=== PATIENT | male | born 1990 | race Caucasian/White ===

== ENCOUNTER 2016-12-08 12:04 | Emergency (ER) | payer SELFPAY ==
[~2016-12-08] VITALS: Ht 172.7 cm; Wt 82.0 kg
[~2016-12-08 12:04] MED LIST: MOBI15TA PO; PRED20 PO
[2016-12-08 12:07] VITALS: BP 104/63; PULSE 62; RESP 18; TEMP 97.5; O2SAT 97
[2016-12-08] MEDS ORDERED: MOBI15TA PO (12:40)
[2016-12-08] MEDS ORDERED: PRED20 PO (12:40)
[2016-12-08] MEDS ORDERED: CYCL1TAB29 PO (12:40)
--- NOTE | 2016-12-08 12:40 | PD ---
HPI Chief Complaint: Musculoskeletal Complaint Time Seen by Provider: 12:15 Travel History International Travel<30 days: No Contact w/Intl Traveler<30days: No Traveled to known affect area: No History of Present Illness HPI Patient is a 26-year-old male who presents to the emergency department for evaluation of right elbow pain. Patient states the pain has been ongoing for approximately 3 weeks. He was seen and evaluated in the emergency department previously for the same complaint. He states that he was diagnosed with tendinitis however for the last 3 days he's had increased pain. He denies any fever or chills, IV drug use, redness. Patient reports taking Aleve for the pain. He states his pain is 7/10 and describes as aching and sore. PFSH Past Medical History Anxiety: Yes (STATES USED TO HAVE ANXIETY ATTACKS) Diminished Hearing: No Immunizations Current: Yes Social History Alcohol Use: Yes (OCC) Tobacco Use: Yes (1 pk) Substance Use: Yes (COCAINE, MARIJUANA) Allergies-Medications (Allergen,Severity, Reaction): Coded Allergies: No Known Allergies (Verified , 12/08/16) Reported Meds & Prescriptions Reported Meds & Active Scripts Active Mobic (Meloxicam) 15 Mg Tab 15 Mg PO DAILY Prednisone 20 Mg Tab 20 Mg PO DAILY Review of Systems Except as stated in HPI: all other systems reviewed are Neg Musculoskeletal: Positive: Myalgias, Arthralgias, Pain Physical Exam Narrative GENERAL: Well-nourished, well-developed patient. SKIN: Warm and dry. HEAD: Normocephalic. EYES: No scleral icterus. No injection or drainage. NECK: Supple, trachea midline. No JVD or lymphadenopathy. CARDIOVASCULAR: Regular rate and rhythm without murmurs, gallops, or rubs. RESPIRATORY: Breath sounds equal bilaterally. No accessory muscle use. GASTROINTESTINAL: Abdomen soft, non-tender, nondistended. MUSCULOSKELETAL: No cyanosis, or edema. Full range of motion in right elbow, 5/ 5 muscle strength in upper extremities. No erythema, induration or fluctuance noted on exam. Patient is neurovascularly intact.. BACK: Nontender without obvious deformity. No CVA tenderness. Data Data Last Documented VS Vital Signs Date Time Temp Pulse Resp B/P Pulse Ox O2 Delivery O2 Flow Rate FiO2 12/08/16 12:07 97.5 62 18 104/63 97 MDM Medical Decision Making Medical Screen Exam Complete: Yes Emergency Medical Condition: Yes Interpretation(s) Vital Signs Date Time Temp Pulse Resp B/P Pulse Ox O2 Delivery O2 Flow Rate FiO2 12/08/16 12:07 97.5 62 18 104/63 97 Differential Diagnosis Tendinitis versus arthritis versus cellulitis versus other Narrative Course Patient is a 26-year-old male who presents emergency department for reevaluation of right elbow pain. Patient was seen in the emergency department twice for the same complaint. Patient is neurovascularly intact. He was diagnosed with tendinitis, prescribed meloxicam which he has not been taking. X -ray of the right elbow was negative for soft tissue swelling or acute abnormality. Patient was prescribed meloxicam, prednisone on his last visit which he did not fill. Patient will be represcribed these medications, he was encouraged to fill them and take them as directed additionally patient will be provided with a prescription for a muscle relaxer. He is encouraged to adhere to treatment plan to assess whether or not he responds appropriately. He was further encouraged to follow-up with her primary doctor or orthopedic surgeon for ongoing evaluation and management. He was advised to return to emergency department immediately should he experience any new or worsening symptoms or signs of infection. Patient verbalized understanding of these instructions. Patient is stable for discharge. Diagnosis Primary Impression: Right elbow tendinitis Referrals: [facility] Primary Care Physician Patient Instructions: General Instructions, Tendinitis (ED) Additional Instructions: Take medications as prescribed Continue range of motion exercises Apply warm moist heat to affected area Follow-up with your primary doctor and/or orthopedic surgeon for further evaluation and management Return to emergency department for any new or worsening symptoms Med/Other Pt SpecificInfo: Prescription(s) given Scripts Cyclobenzaprine (Flexeril)10 Mg Tab10 Mg PO TID PRN (MUSCLE SPASM) 10 Days Ref 0 Prov:Shania Morrison 12/08/16 Meloxicam (Mobic)15 Mg Tab15 Mg PO DAILY #30 TAB Prov:Shania Morrison 12/08/16 Prednisone 20 Mg Tab20 Mg PO DAILY #10 TAB Prov:Shania Morrison 12/08/16 Disposition: 01 DISCHARGE HOME Condition: Stable Shania Morrison Dec 08, 2016 12:40
== END 2016-12-08 12:49 | disposition home or self-care (01) ==
LOC: PHEFT 12:04
DX: M77.9 Enthesopathy, unspecified (principal); F17.210 Nicotine dependence, cigarettes, uncomplicated
CPT/HCPCS: 99283

== ENCOUNTER 2016-12-14 11:56 | Emergency (ER) | payer SELFPAY ==
[~2016-12-14] VITALS: Ht 172.7 cm; Wt 86.3 kg
[~2016-12-14 11:56] MED LIST changes: +CYCL1TAB29 PO
[2016-12-14 12:08] VITALS: BP 111/68; PULSE 64; RESP 16; TEMP 98.4; O2SAT 98
--- NOTE | 2016-12-14 12:26 | PD ---
HPI Chief Complaint: Musculoskeletal Complaint Time Seen by Provider: 12:17 Travel History International Travel<30 days: No Contact w/Intl Traveler<30days: No Traveled to known affect area: No History of Present Illness HPI The patient is a 26-year-old male who presents emergency department for right elbow pain. Patient complains of pain located over the lateral aspect the right elbow that is worse with certain types of movement. The patient has been seen twice in the emergency department and diagnosed with lateral epicondylitis. The patient was placed on prednisone and his symptoms significantly improved. However, the patient stopped the dose of prednisone after the course was complete and his pain returned. The pain is located over the lateral aspect right elbow, worse with turning his forearm and certain direction as well as palpation of the lateral and extensor surface of the right forearm. He denies any acute trauma to the right elbow. He is right-hand dominant. He is also taking Modicon Flexeril with minimal relief of his symptoms. The patient states he is currently in sobriety, requests no narcotics. PFSH Past Medical History Anxiety: Yes (STATES USED TO HAVE ANXIETY ATTACKS) Diminished Hearing: No Immunizations Current: Yes Social History Alcohol Use: Yes (OCC) Tobacco Use: Yes (1 pk) Substance Use: Yes (COCAINE, MARIJUANA) Allergies-Medications (Allergen,Severity, Reaction): Coded Allergies: No Known Allergies (Verified , 12/14/16) Reported Meds & Prescriptions Reported Meds & Active Scripts Active Flexeril (Cyclobenzaprine HCl) 10 Mg Tab 10 Mg PO TID PRN 10 Days Mobic (Meloxicam) 15 Mg Tab 15 Mg PO DAILY Review of Systems General / Constitutional: No: Fever Musculoskeletal: Positive: Pain Skin: No Rash Neurologic: No: Paresthesia, Sensory Disturbance Physical Exam Narrative GENERAL: Awake, alert, pleasant 26-year-old male who appears his stated age and is in no acute respiratory distress. SKIN: Warm and dry. HEAD: Atraumatic. Normocephalic. EYES: No injection or drainage. NECK: Trachea midline. No JVD. MUSCULOSKELETAL: No obvious deformities. Inspection of the right elbow reveals no obvious edema, erythema, and no calor on palpation. Tenderness over the lateral epicondyle of the right forearm, symptoms are exacerbated by active supination/pronation the right form as well as extension of the right hand. Positive right radial pulse. No tenderness of the medial epicondyle. Patient is able fully flex and extend the right elbow. NEUROLOGICAL: Awake and alert. No obvious cranial nerve deficits. Motor grossly within normal limits. Normal speech. Sensation is intact over the radial, median, and ulnar distribution of the right upper extremity. PSYCHIATRIC: Appropriate mood and affect; insight and judgment normal. Data Data Last Documented VS Vital Signs Date Time Temp Pulse Resp B/P Pulse Ox O2 Delivery O2 Flow Rate FiO2 12/14/16 12:08 98.4 64 16 111/68 98 Orders Ketorolac Inj (Toradol Inj) (12/14/16 12:30) [facility] Medical Decision Making Medical Screen Exam Complete: Yes Emergency Medical Condition: Yes Medical Record Reviewed: Yes Differential Diagnosis Differential diagnosis includes lateral epicondylitis, medial epicondylitis, tendinitis, neuropathy, ulnar tunnel syndrome, occult fracture, overuse syndrome. Narrative Course The patient's physical examination is consistent with lateral epicondylitis. The patient recently finished oral steroids, is advised to continue the Motrin Flexeril. He is advised to use a bandage over the proximal right forearm to take pressure off the insertion point of the lateral upper condyle. She is also advised to follow-up with orthopedics, he may benefit from outpatient follow-up and possible steroid injection. Diagnosis Primary Impression: Right elbow tendinitis Patient Instructions: General Instructions Additional Instructions: Follow-up with orthopedics. [id number] forearm band as directed. Rest, ice, compression, elevation, and limited activity with a right upper extremity. Disposition: 01 DISCHARGE HOME Condition: Stable Venkatesh Kaur MD Dec 14, 2016 12:26
[2016-12-14] MEDS ORDERED: KETOROLAC TROMETHAMINE 60 MG/2 ML (IM) VIAL IM ONE (12:30)
== END 2016-12-14 12:47 | disposition home or self-care (01) ==
LOC: PHEFT 11:56
DX: M77.11 Lateral epicondylitis, right elbow (principal); F17.210 Nicotine dependence, cigarettes, uncomplicated; F12.10 Cannabis abuse, uncomplicated; F14.10 Cocaine abuse, uncomplicated; F41.9 Anxiety disorder, unspecified
CPT/HCPCS: 96372; 99283; J1885

== ENCOUNTER 2017-04-12 12:06 | Emergency (ER) | payer SELFPAY ==
[~2017-04-12] VITALS: Ht 175.3 cm; Wt 80.7 kg
[~2017-04-12 12:06] MED LIST changes: -PRED20 PO
[2017-04-12 12:14] VITALS: BP 106/55; PULSE 75; RESP 15; TEMP 98.1; O2SAT 96
--- NOTE | 2017-04-12 12:40 | PD ---
HPI Chief Complaint: Skin Problem Time Seen by Provider: 12:40 Travel History International Travel<30 days: No Contact w/Intl Traveler<30days: No Traveled to known affect area: No History of Present Illness HPI 27-year-old male presents to emergency Department with enlarging painful cyst behind the right ureter at the base of the posterior pinna. Patient denies any specific injury. Patient states he had a small cyst there for many years but over the past week has become more erythematous and swollen. His pain is 9 out of 10 with pressure to the area. He has had no drainage from the area. He denies fever, chills, or other symptoms. He has no known drug allergies. PFSH Past Medical History Anxiety: Yes (STATES USED TO HAVE ANXIETY ATTACKS) Diminished Hearing: No Immunizations Current: Yes Influenza Vaccination: No ?: Not Social History Alcohol Use: Yes (OCC) Tobacco Use: Yes (1 PPD) Substance Use: Yes (HX COCAINE, MARIJUANA; DENIES CURRENTLY) Allergies-Medications (Allergen,Severity, Reaction): Coded Allergies: No Known Allergies (Verified , 04/12/17) Reported Meds & Prescriptions Reported Meds & Active Scripts Active No Active Prescriptions or Reported Medications Review of Systems Except as stated in HPI: all other systems reviewed are Neg General / Constitutional: No: Fever Eyes: No: Visual changes HENT: No: Headaches Cardiovascular: No: Chest Pain or Discomfort Respiratory: No: Shortness of Breath Gastrointestinal: No: Abdominal Pain Genitourinary: No: Dysuria Musculoskeletal: No: Pain Skin: No Rash Neurologic: No: Weakness Psychiatric: No: Depression Endocrine: No: Polydipsia Hematologic/Lymphatic: No: Easy Bruising Physical Exam Narrative GENERAL: Patient appears in mild distress. SKIN: Warm and dry. Normal color. Normal turgor. Patient has a rounded firm centimeter sized tender abscess to the right posterior pinna without obvious pointing or drainage. HEAD: Atraumatic. Normocephalic. EYES: Pupils equal and round. No scleral icterus. No injection or drainage. ENT: No nasal bleeding or discharge. Mucous membranes pink and moist. Pharynx is clear. NECK: Trachea midline. Supple and nontender. MUSCULOSKELETAL: Extremities without clubbing, cyanosis, or edema. No obvious deformities. NEUROLOGICAL: Awake and alert. No obvious cranial nerve deficits. Motor grossly within normal limits. Five out of 5 muscle strength in the arms and legs. Normal speech. PSYCHIATRIC: Appropriate mood and affect; insight and judgment normal. Data Data Last Documented VS Vital Signs Date Time Temp Pulse Resp B/P Pulse Ox O2 Delivery O2 Flow Rate FiO2 04/12/17 12:14 98.1 75 15 106/55 96 Orders Lidocai-Epi 1%-1:100,000 Inj (Xylocaine- (04/12/17 12:45) MDM Medical Decision Making Medical Screen Exam Complete: Yes Emergency Medical Condition: Yes Differential Diagnosis Right ear abscess. Right ear cellulitis. Sebaceous cyst. Narrative Course Patient is medically stable at time of exam. Patient is discussed and examined with Dr. Fam. I&D of abscess is performed. Pressure dressing is placed with instructions to leave on for 24 hours. Patient can ice the area frequently as needed. Patient also placed on Bactrim DS twice a day 5 days. Patient take ibuprofen or Tylenol as needed for pain. Patient follow-up as needed either here or with his primary care physician. Procedures Procedure Narrative After the risks and benefits were discussed the following procedure was performed: INCISION AND DRAINAGE OF ABSCESS: The area was prepped and was sterilely draped. A subcutaneous wheal of 1 % Xylocaine with epinephrine with a total number 1.5 mL was used to anesthetize the area. The area was properly anesthetized. A number 11 scalpel was used to make a 0.5-cm incision across the area of the abscess. The abscess was drained an irrigated with normal saline. Sterile pressure dressing applied. Patient advised to keep dressing on for at least 24 hours. He can use ice, Tylenol, and ibuprofen as needed. Diagnosis Primary Impression: Sebaceous cyst of ear Patient Instructions: Abscess Incision and Drainage (ED), Cyst (ED), General Instructions Additional Instructions: Patient is medically stable at time of exam. Patient is discussed and examined with Dr. Fam. I&D of abscess is performed. Pressure dressing is placed with instructions to leave on for 24 hours. Patient can ice the area frequently as needed. Patient also placed on Bactrim DS twice a day 5 days. Patient take ibuprofen or Tylenol as needed for pain. Patient follow-up as needed either here or with his primary care physician. Med/Other Pt SpecificInfo: Prescription(s) given Scripts Ibuprofen 600 Mg [id number] Mg PO Q6H PRN (Pain/Inflammation) #40 TAB Prov:Dany Fam MD 04/12/17 Sulfamethoxazole-Trimethoprim (Bactrim DS)800-160 Mg Tab1 Tab PO BID #14 TAB Prov:Dany Fam MD 04/12/17 Disposition: 01 DISCHARGE HOME Condition: Stable Jv Garner April 12, 2017 12:40
[2017-04-12] MEDS ORDERED: LIDOCAINE 1%/EPINEPHrine 1:100,000 SOLN 20 ML VIAL INFIL ONE (12:45)
[2017-04-12] MEDS ORDERED: IBUP-232 PO (13:10)
[2017-04-12] MEDS ORDERED: BACT800T5 PO (13:10)
== END 2017-04-12 13:33 | disposition home or self-care (01) ==
LOC: PHEFT 12:06
DX: L72.3 Sebaceous cyst (principal); F41.9 Anxiety disorder, unspecified; F17.200 Nicotine dependence, unspecified, uncomplicated
CPT/HCPCS: 10060

== ENCOUNTER 2017-11-04 19:38 | Emergency (ER) | payer SELFPAY ==
[~2017-11-04 19:38] MED LIST changes: +BACT800T5 PO; -CYCL1TAB29 PO; +IBUP-232 PO; -MOBI15TA PO
[2017-11-04 19:40] VITALS: BP 120/55; PULSE 80; TEMP 98.8; O2SAT 96
[2017-11-04 20:02] VITALS: RESP 22
[2017-11-04] MEDS ORDERED: BACT800T5 PO (20:49)
--- NOTE | 2017-11-04 20:49 | PD ---
HPI Chief Complaint: Skin Problem Time Seen by Provider: 20:00 Travel History International Travel<30 days: No Contact w/Intl Traveler<30days: No Traveled to known affect area: No History of Present Illness HPI 27-year-old male patient presents emergency department for evaluation of an abscess to the posterior aspect of his right earlobe. Patient denies any fever , chills, malaise associated. Patient states he noted the abscess for a couple days. Patient states that this is recurring. He had to get his abscess drained at our facility prior. On the posterior aspect of the lower earlobe a large fluctuant erythematous swelling was noted. It was approximately 3 cm in diameter and 3 cm in height away from the earlobe. Patient is no other physiological complaints at this time. PFSH Past Medical History Anxiety: Yes (STATES USED TO HAVE ANXIETY ATTACKS) Diminished Hearing: No Immunizations Current: Yes Influenza Vaccination: No Social History Alcohol Use: Yes (OCC) Tobacco Use: Yes (1 PPD) Substance Use: Yes (HX COCAINE, MARIJUANA; DENIES CURRENTLY) Allergies-Medications (Allergen,Severity, Reaction): Coded Allergies: No Known Allergies (Verified Adverse Reaction, Unknown, 11/04/17) Reported Meds & Prescriptions Reported Meds & Active Scripts Active Bactrim DS (Sulfamethoxazole-Trimethoprim) 800-160 Mg Tab 1 Tab PO BID 7 Days Review of Systems Except as stated in HPI: all other systems reviewed are Neg Physical Exam Narrative GENERAL: Well-nourished, well-developed 27-year-old male patient in no acute distress. Nontoxic appearing. SKIN: 3 cm in diameter and 3 cm in height fluctuation on the posterior aspect of the right earlobe that is mildly erythematous and tender to the touch. HEAD: Normocephalic. Atraumatic. EYES: No scleral icterus. No injection or drainage. NECK: Supple, trachea midline. No JVD or lymphadenopathy. CARDIOVASCULAR: Regular rate and rhythm without murmurs, gallops, or rubs. RESPIRATORY: Breath sounds equal bilaterally. No accessory muscle use. GASTROINTESTINAL: Abdomen soft, non-tender, nondistended. MUSCULOSKELETAL: No cyanosis, or edema. BACK: Nontender without obvious deformity. No CVA tenderness. Data Data Last Documented VS Vital Signs Date Time Temp Pulse Resp B/P (MAP) Pulse Ox O2 Delivery O2 Flow Rate FiO2 12/16/17 20:02 22 11/04/17 19:40 98.8 80 120/55 (76) 96 Orders Orders Ed Discharge Order (11/04/17 20:54) Tetanus/Diphtheria Tox Adult (Tetanus/Di (11/04/17 21:00) Wound Culture And Gram Stain (11/04/17 21:02) MDM Medical Decision Making Medical Screen Exam Complete: Yes Emergency Medical Condition: Yes Differential Diagnosis Differential diagnoses include but not limited to abscess, cyst, cellulitis Narrative Course I&D was performed to the abscess in the posterior aspect of the right ear. Please see my procedural narrative. Large amount of purulent drainage was noted from the abscess. Patient reported relief of pressure. Due to the strange presentation of this abscess there was a large amount of excess skin when the purulent fluid was drained. It was high risk to reaccumulate and not appropriate to pack. There was a excess thin skin layer after the drainage. The excess skin was removed and sutures were placed to approximate the wound and facilitate healing. Antibiotics given prophylactically due to sutures being placed after an I&D. Patient told that antibiotics are free at [facility]. Patient reports that he attributes the reason the abscesses keep reforming is there is some "hard ball" in his ear lobe that needs to be removed. No foreign body or "hard ball" noted during this procedure. Patient is discharged home with instructions to keep sutures clean and dry and return in 7-10 days to get the sutures removed. Patient stable for discharge at this time. Diagnosis Primary Impression: Abscess of external ear Qualified Codes: H60.01 - Abscess of right external ear Referrals: [facility] Primary Care Physician Patient Instructions: Abscess (ED), General Instructions Additional Instructions: Please return to emergency department if your symptoms return or worsen. Watch for signs or symptoms of infection such as redness, fevers, purulent discharge, increasing pain and seek medical attention immediately if signs of infection. Follow up with your primary care provider. May take [id number] ibuprofen or Tylenol as need for pain. Keep sutures clean and dry. Get sutures removed in 7-10 days. Med/Other Pt SpecificInfo: Prescription(s) given Scripts Sulfamethoxazole-Trimethoprim (Bactrim DS) 800-160 Mg Tab 1 TAB PO BID for Infection for 7 Days, #14 TAB 0 Refills Prov: Whitney Acosta 11/04/17 Disposition: 01 DISCHARGE HOME Condition: Stable Whitney Acosta Nov 04, 2017 20:49
[2017-11-04] MEDS ORDERED: TETANUS/DIPHTHERIA TOXOID ADULT 0.5 ML VIAL IM ONE (21:00)
== END 2017-11-04 21:12 | disposition home or self-care (01) ==
LOC: PHEFT 19:38
DX: H60.01 Abscess of right external ear (principal); Z72.0 Tobacco use; Z23 Encounter for immunization
CPT/HCPCS: 69005; 87070; 87205; 90471; 90714

== ENCOUNTER 2017-11-09 18:15 | Emergency (ER) | payer SELFPAY ==
[~2017-11-09 18:15] MED LIST changes: -IBUP-232 PO
[2017-11-09 18:20] VITALS: BP 123/59; PULSE 62; RESP 20; TEMP 98.3
--- NOTE | 2017-11-09 18:46 | PD ---
HPI Chief Complaint: Skin Problem Time Seen by Provider: 18:33 Travel History International Travel<30 days: No Contact w/Intl Traveler<30days: No Traveled to known affect area: No History of Present Illness HPI 27-year-old male with PMH of sebaceous cyst removal from the right earlobe on presents to the ED for suture removal. He denies fever, chills, drainage from the wound, redness of the wound, tenderness of the wound. He did not take antibiotics at first prescribed at the time of the procedure. PFSH Past Medical History Anxiety: Yes (STATES USED TO HAVE ANXIETY ATTACKS) Diminished Hearing: No Immunizations Current: Yes Social History Alcohol Use: No (OCC) Tobacco Use: Yes (1 PPD) Substance Use: Yes (HX COCAINE, MARIJUANA; STATES CURRENTLY 16MO SOBER.) Allergies-Medications (Allergen,Severity, Reaction): Coded Allergies: No Known Allergies (Verified Adverse Reaction, Unknown, 11/04/17) Reported Meds & Prescriptions Reported Meds & Active Scripts Active Bactrim DS (Sulfamethoxazole-Trimethoprim) 800-160 Mg Tab 1 Tab PO BID 7 Days Review of Systems Except as stated in HPI: all other systems reviewed are Neg Physical Exam Narrative GENERAL: Well-nourished, well-developed patient. SKIN: Focused skin assessment warm/dry. There are [address] behind the right ear with minimal localized erythema. No fluctuance, edema, warmth, discharge noted. HEAD: Normocephalic. EYES: No scleral icterus. No injection or drainage. NECK: Supple, trachea midline. No JVD or lymphadenopathy. CARDIOVASCULAR: Regular rate and rhythm without murmurs, gallops, or rubs. RESPIRATORY: Breath sounds equal bilaterally. No accessory muscle use. GASTROINTESTINAL: Abdomen soft, non-tender, nondistended. MUSCULOSKELETAL: No cyanosis, or edema. BACK: Nontender without obvious deformity. No CVA tenderness. Data Data Last Documented VS Vital Signs Date Time Temp Pulse Resp B/P (MAP) Pulse Ox O2 Delivery O2 Flow Rate FiO2 11/09/17 18:20 98.3 62 20 123/59 (80) Orders Orders Ed Discharge Order (11/09/17 18:46) MDM Medical Decision Making Medical Screen Exam Complete: Yes Emergency Medical Condition: Yes Differential Diagnosis Abscess versus sebaceous cyst versus suture removal versus cellulitis versus wound recheck versus other Narrative Course 27-year-old male with PMH of sebaceous cyst removal from the right earlobe on presents to the ED for suture removal. He denies fever, chills, drainage from the wound, redness of the wound, tenderness of the wound. He did not take antibiotics at first prescribed at the time of the procedure. Vitals reviewed. On exam there are 3 sutures in the posterior aspect of the left earlobe. They were removed without complication. No special treatment of the wound is required. Patient is stable and discharged home. Diagnosis Primary Impression: Visit for suture removal Additional Instructions: You have a choice when it comes to health care. We appreciate your choice to utilize [facility] [employer]. No special care of the wound is required. Return to the ED for any urgent or emergent medical condition. Disposition: 01 DISCHARGE HOME Condition: Stable Silvana Willis Nov 09, 2017 18:46
== END 2017-11-09 18:52 | disposition home or self-care (01) ==
LOC: PHEFT 18:15
DX: Z48.02 Encounter for removal of sutures (principal)
CPT/HCPCS: 99281

== ENCOUNTER 2018-01-22 18:38 | Emergency (ER) | payer SELFPAY ==
[~2018-01-22] VITALS: Ht 175.3 cm; Wt 85.8 kg
[2018-01-22 18:48] VITALS: BP 137/51; PULSE 69; RESP 16; TEMP 97.7; O2SAT 97
[2018-01-22] MEDS ORDERED: BACI500O2 TOPICAL (20:26)
[2018-01-22] MEDS ORDERED: BACT800T5 PO (20:26)
--- NOTE | 2018-01-22 20:36 | PD ---
HPI Chief Complaint: Skin Problem Time Seen by Provider: 20:21 Travel History International Travel<30 days: No Contact w/Intl Traveler<30days: No Traveled to known affect area: No History of Present Illness HPI 27-year-old male who presents to the ED for evaluation of painful rash in pressure-like lesion on the back of his head. 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 He denies any falls or injuries but states that since Monday his been having swelling and pressure on the back of his head. Per patient he does not he got bit by something or something else happened. Noted that he had a pimple like lesion on the area. He cannot really tell whether this as is in the back of his head. Per patient his been having swelling and pressure in the back of his neck and some pain. He is not sure if this is related to that or something else. He denies any fevers chills or sweats. Per patient he has no pain more like pressure. Denies ever having This before. Denies any tick bites. Denies any other medical issues. No allergies to medication. PFSH Past Medical History Anxiety: Yes (STATES USED TO HAVE ANXIETY ATTACKS) Diminished Hearing: No Immunizations Current: Yes Tetanus Vaccination: < 5 Years Influenza Vaccination: No Social History Alcohol Use: No Tobacco Use: Yes (1 PPD) Substance Use: Yes (HX COCAINE, MARIJUANA; STATES CURRENTLY SOBER.) Allergies-Medications (Allergen,Severity, Reaction): Coded Allergies: No Known Allergies (Verified Adverse Reaction, Unknown, 01/22/18) Reported Meds & Prescriptions Reported Meds & Active Scripts Active Bactrim DS (Sulfamethoxazole-Trimethoprim) 800-160 Mg Tab 1 Tab PO BID 10 Days Bacitracin Topical 500 Unit/Gm Oint 1 Applic TOPICAL BID 10 Days Review of Systems Except as stated in HPI: all other systems reviewed are Neg Physical Exam Narrative GENERAL: SKIN: Warm and dry. Patient has a circular erythematous rash on the right occipital head. Middle of it appears to be clear with no sign of infection. Erythematous rash appears to be somewhat debrided. Patient does appear to have another pimple-like lesions on the back of his head. No pustule or mass noted. Some lymphadenopathy noted on the occipital area. HEAD: Atraumatic. Normocephalic. EYES: Pupils equal and round. No scleral icterus. No injection or drainage. ENT: No nasal bleeding or discharge. Mucous membranes pink and moist. NECK: Trachea midline. No JVD. CARDIOVASCULAR: Regular rate and rhythm. RESPIRATORY: No accessory muscle use. Clear to auscultation. Breath sounds equal bilaterally. GASTROINTESTINAL: Abdomen soft, non-tender, nondistended. Hepatic and splenic margins not palpable. MUSCULOSKELETAL: Extremities without clubbing, cyanosis, or edema. No obvious deformities. NEUROLOGICAL: Awake and alert. No obvious cranial nerve deficits. Motor grossly within normal limits. Five out of 5 muscle strength in the arms and legs. Normal speech. PSYCHIATRIC: Appropriate mood and affect; insight and judgment normal. Data Data Last Documented VS Vital Signs Date Time Temp Pulse Resp B/P (MAP) Pulse Ox O2 Delivery O2 Flow Rate FiO2 01/22/18 18:48 97.7 69 16 137/51 (79) 97 Orders Orders Ed Discharge Order (01/22/18 20:28) [facility] Medical Decision Making Medical Screen Exam Complete: Yes Emergency Medical Condition: Yes Medical Record Reviewed: Yes Differential Diagnosis Cellulitis versus insect bite versus folliculitis Narrative Course 27-year-old male that presents to the ED for evaluation of lesion to the back of his head. Patient was properly examined and was found to have signs and symptoms consistent appears to be infected insect bite. Patient's lesion appears to be circular but per patient he was using a little hard to get it off. He doesn't really have a look of ringworm and he has more of a look for an infection of possible ulcer forming. Patient does have some pustules around the area. Possible folliculitis. I do believe that this is likely bacterial. We'll treat with Bactrim and bacitracin. Told that if he not better in 2 or 3 days to come back. Follow with PCP. See ED worsening symptoms. Ice or warm compresses. Diagnosis Primary Impression: Cellulitis Qualified Codes: L03.811 - Cellulitis of head [any part, except face] Patient Instructions: General Instructions Additional Instructions: Take medications as prescribed. Follow with PCP. See ED for worsening symptoms. Recheck in 48 hours if no improvement at all. Med/Other Pt SpecificInfo: Prescription(s) given Scripts Sulfamethoxazole-Trimethoprim (Bactrim DS) 800-160 Mg Tab 1 TAB PO BID for Infection for 10 Days, #20 TAB 0 Refills Prov: rAmida Leon MD 01/22/18 Bacitracin Topical (Bacitracin Topical) 500 Unit/Gm Oint 1 APPLIC TOPICAL BID for Infection for 10 Days, #113 GM 0 Refills Prov: Armida Leon MD 01/22/18 Disposition: 01 DISCHARGE HOME Condition: Stable Gregorio Teresa Jan 22, 2018 20:35
== END 2018-01-22 20:46 | disposition home or self-care (01) ==
LOC: PHEFT 18:38
DX: L03.811 Cellulitis of head [any part, except face] (principal); F17.210 Nicotine dependence, cigarettes, uncomplicated
CPT/HCPCS: 99283

== ENCOUNTER 2018-03-27 21:22 | Emergency (ER) | payer SELFPAY ==
[~2018-03-27] VITALS: Ht 172.7 cm; Wt 82.0 kg
[~2018-03-27 21:22] MED LIST changes: +BACI500O2 TOPICAL
[2018-03-27 21:57] VITALS: BP 126/70; PULSE 68; RESP 18; TEMP 97.8; O2SAT 99
[2018-03-28] MEDS ORDERED: BACT800T5 PO (21:52)
== END 2018-03-27 22:45 | disposition left against medical advice (07) ==
LOC: NED 21:22
DX: L98.9 Disorder of the skin and subcutaneous tissue, unspecified (principal)
CPT/HCPCS: 99281

== ENCOUNTER 2018-03-28 20:34 | Emergency (ER) | payer SELFPAY ==
[2018-03-28 20:43] VITALS: BP 126/70; PULSE 83; RESP 20; TEMP 98.8; O2SAT 99
[2018-03-28] MEDS ORDERED: BACT800T5 PO (21:52)
--- NOTE | 2018-03-28 21:52 | PD ---
HPI . Skin lesion Chief Complaint: Skin Problem Time Seen by Provider: 21:42 Travel History International Travel<30 days: No Contact w/Intl Traveler<30days: No Traveled to known affect area: No History of Present Illness HPI This patient presents with a painful lesion on his left sarabia. 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 He believes that he was bitten by something on Monday which was 5 days ago. He developed a small lesion on his left sarabia the next day. It has gotten progressively worse since that time. He has been treating it by washing it in a hot shower and using warm compresses. He has also used antibiotic ointment. Despite this, his symptoms have gotten worse rather than better. He denies fever. He denies lymphangitis. He states that his pain is pretty mild. It is exacerbated by palpation. PFSH Past Medical History Anxiety: Yes (STATES USED TO HAVE ANXIETY ATTACKS) Diminished Hearing: No Musculoskeletal: Yes (Hx right elbow tendonitis) Immunizations Current: Yes Social History Alcohol Use: No Tobacco Use: Yes (1 PPD) Substance Use: No Allergies-Medications (Allergen,Severity, Reaction): Coded Allergies: No Known Allergies (Verified Adverse Reaction, Unknown, 03/28/18) Reported Meds & Prescriptions Reported Meds & Active Scripts Active No Active Prescriptions or Reported Medications Review of Systems Except as stated in HPI: all other systems reviewed are Neg General / Constitutional: No: Fever, Chills Skin: Positive Change in Pigmentation, Positive Lesions Physical Exam Narrative GENERAL: Awake and alert and in no acute distress. SKIN: Warm and dry. Area of cellulitis on the left anterior sarabia. There is no fluctuance. The area is red, hot, swollen and tender. No associated lymphangitis. He is wearing his pants I cannot palpate from adenopathy. HEAD: Normocephalic/atraumatic. EYES: Pupils are equal. Extraocular movements are intact. NECK: Normal range of motion. CARDIOVASCULAR: Regular rate and rhythm. RESPIRATORY: Nonlabored respirations. MUSCULOSKELETAL: Atraumatic. NEUROLOGICAL: Nonfocal. PSYCHIATRIC: Appropriate mood and affect. Data Data Last Documented VS Vital Signs Date Time Temp Pulse Resp B/P (MAP) Pulse Ox O2 Delivery O2 Flow Rate FiO2 03/28/18 20:43 98.8 83 20 126/70 (88) 99 MDM Medical Decision Making Medical Screen Exam Complete: Yes Emergency Medical Condition: Yes Differential Diagnosis My differential diagnosis includes but is not limited to localized wound infection, cellulitis, abscess Narrative Course This patient presents with an area of redness, warmth, swelling and tenderness on the left anterior sarabia. There is no fluctuance. He will be treated with Bactrim. He will be instructed to return here in 2 days if not better. He is to continue the warm compresses. Diagnosis Primary Impression: Cellulitis Qualified Codes: L03.116 - Cellulitis of left lower limb Additional Instructions: Continue warm compresses. Return here in 2 days if you are not better. Med/Other Pt SpecificInfo: Prescription(s) given Scripts Sulfamethoxazole-Trimethoprim (Bactrim DS) 800-160 Mg Tab 1 TAB PO BID for Infection, #20 TAB 0 Refills Prov: Tavia Ayala MD 03/28/18 Disposition: 01 DISCHARGE HOME Condition: Stable Tavia Ayala MD March 28, 2018 21:52
[2018-03-28] MEDS ORDERED: SULFAMETHOXAZOLE-TRIMETHOPRIM DS 800-160 MG TAB PO ONE (22:00)
== END 2018-03-28 22:22 | disposition home or self-care (01) ==
LOC: PHED 20:34 → PHEFT 22:22
DX: L03.116 Cellulitis of left lower limb (principal); F41.9 Anxiety disorder, unspecified; F17.200 Nicotine dependence, unspecified, uncomplicated
CPT/HCPCS: 99283